=== PATIENT | female | born 1980 | race American Indian/Alaskan Native ===

== ENCOUNTER 2017-08-12 11:46 | Emergency (ER) | payer OTHER ==
[~2017-08-12] VITALS: Ht 160 cm; Wt 79.4 kg
[2017-08-12] MEDS ORDERED: ZOFRAN ODT4 MG PO (12:10)
[2017-08-12] MEDS ORDERED: TOPROL XL25 MG PO (12:14)
[2017-08-12] MEDS ORDERED: LASIX20 MG PO (12:14)
[2017-08-12] MEDS ORDERED: LITHIUM CARBON450 MG PO (12:15)
[2017-08-12] MEDS ORDERED: ULTRAM50 MG PO (12:15)
[2017-08-12] MEDS ORDERED: LIPITOR20 MG PO (12:16)
[2017-08-12] MEDS ORDERED: GABAPENTIN800 MG PO (12:16)
[2017-08-12] MEDS ORDERED: TRAZODONE HCL50 MG PO (12:16)
[2017-08-12] MEDS ORDERED: ABILIFY10 MG PO (12:17)
[2017-08-12] MEDS ORDERED: KLONOPIN0.5 MG PO (12:17)
[2017-08-12] MEDS ORDERED: LORAZEPAM0.5 MG PO (12:17)
[2017-08-12] MEDS ORDERED: METFORMIN HCL500 MG PO (15:09)
== END 2017-08-12 15:18 | disposition home or self-care (01) ==
LOC: ED 11:46
DX: E11.65 Type 2 diabetes mellitus with hyperglycemia (principal); R11.2 Nausea with vomiting, unspecified; I10 Essential (primary) hypertension; C67.9 Malignant neoplasm of bladder, unspecified; Z98.890 Other specified postprocedural states; Z88.0 Allergy status to penicillin; Z88.2 Allergy status to sulfonamides; Z88.1 Allergy status to other antibiotic agents; Z91.041 Radiographic dye allergy status; Z79.899 Other long term (current) drug therapy; Z88.8 Allergy status to other drugs, medicaments and biological substances
CPT/HCPCS: 70450; 80053; 81001; 82010; 82150; 83605; 84703; 85025; 87088; 87147; 96361; 96374; 96375; 96376; 99284; J1170; J2405; J7030